=== PATIENT | male | born 1965 ===

== ENCOUNTER 2017-06-07 12:41 | Emergency (ER) | payer SELFPAY ==
--- NOTE | 2017-06-07 14:05 | UC ---
Skin Complaint HPI - HPI Summary HPI Summary: 51 y/o male presents to the urgent care c/o rash in dorsal side of the Rt arm s/ p a bug bite for the past 3 days. Pt reports he has been exposed to tick bites and he has never taken the prophylactic treatment before. His rash is associated with fever, join pain, FUCHS, fatigue and no appetite. He has applied hydrogen peroxide thinking it was infected. He denies SOB, chest pain, N/V/D, abdominal pain. Pt has not other complains - History of Current Complaint Time Seen by Provider: 06/07/17 13:48 Stated Complaint: BUG BITE Hx Obtained From: Patient Onset/Duration: Sudden Onset, Lasting Days, Still Present Skin Exposure Onset/Duration: Days Ago Timing: Constant Onset Severity: Mild Current Severity: Moderate Pain Intensity: 4 - join pains Pain Scale Used: 0-10 Numeric Location: Other - Dorsal side of RT arm close to shoulder. Character: Swelling, Redness Aggravating: Touch Alleviating: Nothing Associated Signs & Symptoms: Positive: Weakness, Fever, Tenderness. Negative: Nausea, Vomiting, Numbness, Chills, Cough, Wheezing, Chest Pain, Abdominal Pain Related History: Possible Reaction to: Insect - Allergy/Home Medications Allergies/Adverse Reactions: Allergies Allergy/AdvReac Type Severity Reaction Status Date / Time No Known Allergies Allergy Verified 06/07/17 14:08 Review of Systems Constitutional: Fever - on and off for the past 3 days Skin: Rash - Dorsal side of Rt arm Eyes: Negative ENT: Negative Respiratory: Negative Cardiovascular: Negative Gastrointestinal: Negative Genitourinary: Negative Motor: Negative Neurovascular: Negative Musculoskeletal: Arthralgia - all joins Neurological: Headache - mild Psychological: Negative All Other Systems Reviewed And Are Negative: Yes PMH/Surg Hx/FS Hx/Imm Hx Previously Healthy: Yes - Family History Known Family History: Positive: None - Social History Occupation: Employed Full-time Lives: With Family Physical Exam Triage Information Reviewed: Yes Appearance: Well-Appearing, No Pain Distress, Well-Nourished, Thin Vital Signs Reviewed: Yes Eye Exam: Normal Eyes: Positive: Conjunctiva Clear - PERRLA, EOMI, fundi grossly normal ENT Exam: Normal ENT: Positive: Normal ENT inspection, Hearing grossly normal, Pharynx normal, TMs normal Dental Exam: Normal Neck exam: Normal Neck: Positive: Supple, Nontender, No Lymphadenopathy Respiratory Exam: Normal Respiratory: Positive: Chest non-tender, Lungs clear, Normal breath sounds Cardiovascular Exam: Normal Cardiovascular: Positive: RRR, No Murmur, Pulses Normal, Brisk Capillary Refill Abdominal Exam: Normal Abdomen Description: Positive: Nontender, No Organomegaly, Soft. Negative: CVA Tenderness (R), CVA Tenderness (L) Bowel Sounds: Positive: Present Musculoskeletal Exam: Normal Musculoskeletal: Positive: Strength Intact, ROM Intact, No Edema Neurological Exam: Normal Neurological: Positive: Alert Psychological Exam: Normal Skin: Positive: rashes - Positive erythematous patch with a central clearing and a small blister in the center possible s/p use of hydrogen peroxide, no purelent discharge noticed. Mildly tender swollen to palpation. Course/Dx - Course Course Of Treatment: 51 y/o male presents to the urgent care c/o rash in dorsal side of the Rt arm s/p a bug bite for the past 3 days. Pt reports he has been exposed to tick bites and he has never taken the prophylactic treatment before. His rash is associated with fever, join pain, FCUHS, fatigue and no appetite. He has applied hydrogen peroxide thinking it was infected. He denies SOB, chest pain, N/V/D, abdominal pain. Pt has not other complains. Hx obtained. PE abnormal findings: Positive erythematous patch with a central clearing and a small blister in the center possible s/p use of hydrogen peroxide, no purelent discharge noticed. Mildly tender swollen to palpation. Rash looks like erythema migrans. Pt exposed to tick bite in the past w/o taking any prophyllactic treatment. Lyme serology ordered. PT Rx Doxyxycline Po x 21 days and advised to take full course of ABX despite the lyme serology result and f/u with a PCP from the [facility] [place] [facility] for further management and treatment. If Serology returns positive to f/u with DR Slater specialized in Lyme serology. Pt advised to increase fluid intake, rest, eat well and take ibuprofen PO after meals to alleviate fever and join pains. Pt understood and agreed and left the clinic ambulating. - Differential Diagnoses - Skin Complaint Differential Diagnoses: Cellulitis, Eczema, Local Allergic Reaction, Poison [place] , Tick Born Illness, Urticaria - Diagnoses Provider Diagnoses: 1- rash and arthalgias r/o lyme disease Discharge - Discharge Plan Condition: Stable Disposition: HOME Prescriptions: DOXYcycline CAP(*) [DOXYcycline 100MG CAP(*)] 100 mg PO BID #42 cap Ibuprofen TAB* [Motrin TAB* 600 MG] 600 mg PO Q6H PRN #20 tab PRN Reason: Fever Patient Education Materials: Lyme Disease (ED) Forms: *Work Release Referrals: [facility] [Outside] - 1 Week Paul BONILLA,Freddie Carter [Medical Doctor] - If Needed Additional Instructions: Please take the full course of antibiotic despite the Lyme serology results. Please make an appt with a PCP from the [facility] referral center for further management and treatment and f/u in the results. If results positive please f/ u with Infectious Specialist in Lyme Disease Dr Miller,
== END 2017-06-07 14:18 | disposition home or self-care (01) ==
LOC: UCEAST 12:41
DX: R21 Rash and other nonspecific skin eruption (principal); M25.50 Pain in unspecified joint
CPT/HCPCS: 86618; 99201; G0463